=== PATIENT | female | born 1970 | race Caucasian/White ===

== ENCOUNTER 2016-12-17 06:52 | Inpatient (IN) | payer MEDICARE ==
[~2016-12-17] VITALS: Ht 153.7 cm; Wt 60.9 kg
[~2016-12-17 06:52] MED LIST: AMITIZA8 MCG OR; ASPIRIN325 MG PO; BACTRIM 400-801 TAB PO; BACTROBAN NASAL1 GM NASAL; BENADRYL25 MG PO; CATAPRES0.1 MG PO; COLACE100 MG OR; COZAAR100 MG OR; DILAUDID2 MG PO; DUONEB 2.5-0.5 M3 ML NEB; FLUTICASONE PRO16 GM NS; HYDROCODONE-APA1 TAB PO; KAYEXALATE15 G/60 ML PO; LEXAPRO20 MG PO; LINZESS145 MCG PO; NEXIUM20 MG PO; NITROQUICK0.4 MG SL; NITROSTAT0.4 MG SL; NORVASC5 MG OR; PHOSLO667 MG PO; REGLAN5 MG OR; REGLAN5 MG PO; STERAPRED 5MG 65 M1 PO; SYNTHROID125 MCG PO; TOPAMAX25 MG PO; VENTOLIN HFA18 GM INH; XALATAN 0.0052.5 ML EACH EYE; XANAX1 MG PO; ZOFRAN4 MG PO
[2016-12-17] MEDS ORDERED: LINZESS290 MCG PO (09:41)
[2016-12-17] MEDS ORDERED: RESTASIS EYE DR30 EA EACH EYE (09:49)
[2016-12-17] MEDS ORDERED: ZOFRAN ODT4 MG/UDTAB PO (09:54)
[2016-12-17] MEDS ORDERED: TUMS500 MG PO (09:55)
[2016-12-17] MEDS ORDERED: MIDODRINE HCL10 MG PO (09:56)
[2016-12-17] MEDS ORDERED: TOPROL XL25 MG PO (10:00)
--- NOTE | 2016-12-17 10:00 | NUR ---
ALERT AND ORIENTED X4. ARRIVE TO ROOM VIA STRETCHER FROM [facility]. REPORT FROM ANNA MARIE. COMPLAINS OF NAUSEA AND VOMITING. ZOFRAN GIVEN INROUTE. DENIES SOB. RESERVE RT ARM. RT ARM FISTULA. DIALYSIS . REFUSE NG TUBE. REFUSE IV PLACEMENT. INFORM AND TUNDE MORRIS. CONTINUE ADMISSION PROCESS. BED LOCKED AND LOW. CALL LIGHT IN REACH. TWO SIDERAILS UP. REFUSE SCDs.
[2016-12-17 13:18] VITALS: BP 137/80; Ht 153.7 cm; Wt 60.9 kg
[2016-12-17 13:34] VITALS: BP 137/80
[2016-12-17 13:42] LABS: BASOPHILS 0.2 % (0.0-2.0); EOSINOPHILS 1.7 % (0-7); HEMATOCRIT 34.8 % (36.0-48.0); HEMOGLOBIN 11.2 g/dL (12-16); LYMPHOCYTES 25.7 % (15-50); MCH 32.7 pg (26.0-34.0); MCHC 32.2 g/dL (31.0-37.0); MCV 101.8 fL (80.0-100.0); MEAN PLATELET VOLUME 11.6 fL (7.4-10.4); MONOCYTES 5.2 % (2-11); NEUTROPHILS 67.2 % (40-80); PLATELET COUNT 103 10x3/uL (130-400); RBC 3.42 10x6/uL (4.00-5.40); RDW 14.3 % (11.5-14.5); WBC 4.6 10x3/uL (4.8-10.8)
[2016-12-17 13:50] LABS: CALCIUM 9.7 mg/dL (8.5-10.1); CARBON DIOXIDE 27.9 mmol/L (21.0-32.0); CREATININE - SERUM 8.6 mg/dL (0.6-1.3)
[2016-12-17 13:56] LABS: POTASSIUM - SERUM 5.9 mmol/L (3.5-5.1)
[2016-12-17 15:08] LABS: T4 THYROXINE 9.9 ug/dL (4.7-13.3); THYROID STIMULATING HORMONE 0.18 uIU/mL (0.36-3.74)
[2016-12-17 18:15] VITALS: BP 147/81
[2016-12-17 22:19] VITALS: BP 138/74
[2016-12-18 01:26] VITALS: BP 134/73
--- NOTE | 2016-12-18 03:01 | NUR ---
PT RESTING IN BED WITH EYES CLOSED. NO IV, NO NGT, BOTH WERE REFUSED BY PATIENT. CPOC.
[2016-12-18 04:29] VITALS: BP 144/77
--- NOTE | 2016-12-18 05:54 | NUR ---
PROVIDED AM MEDS. PT STATES SHE CANNOT TAKE THE LINZESS IN THE AM, THAT SHE WILL TAKE THEM IN THE AFTERNOON OR SHE WILL BE GOING TO THE BATHROOM ALL DAY.
[2016-12-18 09:04] VITALS: BP 146/89
[2016-12-18 10:02] LABS: BASOPHILS 0.3 % (0.0-2.0); EOSINOPHILS 2.4 % (0-7); HEMATOCRIT 32.8 % (36.0-48.0); HEMOGLOBIN 10.6 g/dL (12-16); LYMPHOCYTES 35.2 % (15-50); MCH 33.1 pg (26.0-34.0); MCHC 32.3 g/dL (31.0-37.0); MCV 102.5 fL (80.0-100.0); MEAN PLATELET VOLUME 11.8 fL (7.4-10.4); MONOCYTES 3.9 % (2-11); NEUTROPHILS 58.2 % (40-80); PLATELET COUNT 91 10x3/uL (130-400); RDW 14.4 % (11.5-14.5); WBC 3.4 10x3/uL (4.8-10.8)
[2016-12-18 10:06] LABS: ANION GAP 18.2 mmol/L (8-16); CALCIUM 9.2 mg/dL (8.5-10.1); CARBON DIOXIDE 27.4 mmol/L (21.0-32.0); CREATININE - SERUM 9.8 mg/dL (0.6-1.3); POTASSIUM - SERUM 5.6 mmol/L (3.5-5.1)
--- NOTE | 2016-12-18 10:33 | NUR ---
1015- IN PTS ROOM GIVING PT MEDICATION FOR NAUSEA AND PAIN. PT STATES " I AM NOT GOING TO DIALYSIS UNLESS I HAVE MY CREAM TO PUT OVER MY FISTULA". I STATED TO PT THAT I WOULD CALL ALEXANDRA RICO NP AND INFORM HER OF THIS. PT ALSO STATES " I WANT TO SEE A DOCTOR [facility] OR GO HOME IT IS TOO HOT IN THIS HOSPITAL". WILL CONTINUE TO MONITOR. 1035- ALEXANDRA RICO NP ON UNIT. INFORMED HER OF PT WANTING CREAM FOR AVF SITE BEFORE DIALYSIS. WILL AWAIT NEW ORDERS AND CONTINUE TO MONITOR.
[2016-12-18 10:37] LABS: PLATELET ESTIMATE DECREASED
--- NOTE | 2016-12-18 12:02 | NUR ---
ALEXANDRA RICO NP GAVE VERBAL ORDERS FOR PTS EMLA CREAM FOR BEFORE DIALYSIS. PUT ORDER IN COMPUTER ORDER GIVEN. WILL CALL PHARMACY AND GIVE TO PT PRIOR TO DILAYSIS.
[2016-12-18 12:23] VITALS: BP 142/88
--- NOTE | 2016-12-18 14:34 | NUR ---
1400-PT TO DIALYSIS VIA WHEELCHAIR.
--- NOTE | 2016-12-18 15:37 | NUR ---
0715- AM ROUNDING- PT LAYING IN BED ON RIGHT SIDE WITH EYES CLOSED RESTING. NO MONITOR. ON ROOM AIR. NO IV ACCESS, PER REPORT PT REFUSED IV CATHETER ON SUPERVISOR PIG MACHINE (DOCTOR IS AWARE PER SUPERVISOR PIG MACHINE NURSE YARITZA NIX). RESERVE RIGHT ARM FOR AVF, PT IS SUPPOSE TO DIALYZE TODAY. OLD AVF SITE TO LEFT UPPER ARM THAT PER REPORT, DOES NOT WORK ANYMORE. NO NEED AT CURRENT TIME. WILL CONTINUE TO MONITOR AND CONTINUE WITH PLAN OF CARE.
--- NOTE | 2016-12-18 18:06 | NUR ---
PT BACK FROM DIALYSIS VIA WHEELCHAIR. WILL CONTINUE TO MONITOR.
--- NOTE | 2016-12-18 18:45 | NUR ---
PT SITTING UP IN BED WITH EYES OPEN RESTING. NO NEED AT CURRENT TIME. WILL CONTINUE TO MONITOR.
[2016-12-18 20:59] VITALS: BP 134/71
[2016-12-19 00:12] VITALS: BP 135/72
--- NOTE | 2016-12-19 01:52 | NUR ---
RESTING IN BED WITH NO DISTRESS. RESPS EVEN/NONLABORED. NO IV ACCESS/REFUSES. CPOC. CALL LIGHT IN REACH.
[2016-12-19 04:00] VITALS: BP 130/70
[2016-12-19 06:52] LABS: ANION GAP 17.4 mmol/L (8-16); CALCIUM 8.6 mg/dL (8.5-10.1); CARBON DIOXIDE 31.4 mmol/L (21.0-32.0); CREATININE - SERUM 6.5 mg/dL (0.6-1.3); POTASSIUM - SERUM 4.8 mmol/L (3.5-5.1)
[2016-12-19 07:17] LABS: HEMATOCRIT 33.5 % (36.0-48.0); HEMOGLOBIN 10.7 g/dL (12-16); MCH 32.8 pg (26.0-34.0); MCHC 31.9 g/dL (31.0-37.0); MCV 102.8 fL (80.0-100.0); MEAN PLATELET VOLUME 11.4 fL (7.4-10.4); PLATELET COUNT 106 10x3/uL (130-400); RBC 3.26 10x6/uL (4.00-5.40); RDW 14.2 % (11.5-14.5); WBC 2.8 10x3/uL (4.8-10.8)
[2016-12-19 07:49] LABS: LYMPHOCYTES 38 % (15-50); MONOCYTES 8 % (2-11); NEUTROPHILS 54 % (40-80); PLATELET ESTIMATE DECREASED
--- NOTE | 2016-12-19 07:50 | NUR ---
PT AOX4 RESP EVEN AND NONLABORED PT DENIES NEEDS AT THIS TIME BED AT LOWEST SETTING CALL LIGHT WITHIN REACH WILL CONTINUE TO MONITOR
[2016-12-19 08:40] VITALS: BP 146/74
[2016-12-19] MEDS ORDERED: SYNTHROID112 MCG PO (12:50)
[2016-12-19 13:55] VITALS: BP 149/63
--- NOTE | 2016-12-19 14:07 | NUR ---
CM SPOKE WITH PATIENT REGARDING D/C NEEDS. PATIENT STATED SHE IS A DIALYSIS PATIENT AT [employer] AND ALREADY KNOWS HER SCEDULE. PATIENT STATED SHE IS CURRENT WITH [facility] AND HAD NO OTHER NEEDS AT THIS TIME. PATIENT HAS A RIDE HOME TO [place] BY HER FRIEND BENJI. D/C IMM SERVED AND SIGNED.
--- NOTE | 2016-12-19 14:40 | NUR ---
PATIENT PACING IN [place] AND ASKING TO SIGN PAPERS TO GO. INFORMEED THAT PAPERWORK WAS NEARLY COMPLETE AND THAT NURSE WOULD BRING IT TO THE ROOM. TEN MINUTES LATER PATIENT IS AT THE DESK FOR PAPERWORK. INFORMED THAT D/C PAPERWORK NEEDS TO BE PRINTED. ASKED PATIENT [facility] TO CALL LEVOTHYROXINE TO AND SHE STATED THAT SHE HAD SOME AT HOME. INFORMED PATIENT THAT THE DOSAGE HAD BEEN CHANGED. PATIENT C/O "MEDS NOT BEING GIVEN RIGHT" WHILE IN THE HOSPITAL, SO "NONE OF THIS IS RIGHT" (REFERRING TO THE D/C PAPERWORK). DISCHARGE INSTRUCTIONS REVIEWED BY NURSE AND SIGNED BUY PATIENT.
--- NOTE | 2016-12-19 14:43 | NUR ---
PT LEFT VIA WHEELCHAIR AT THIS TIME TO PRIVATE VEHICLE TO HOME
--- NOTE | 2016-12-20 10:43 | NUR ---
Patient Name: ASHELY DILLARD Encounter No: [id number] : 1970 Primary Insurance: MEDICARE A & B Anticipated DC Date: Planned Disposition: HOME HEALTH External Planned Provider: [facility] DCP follow-up note: CM REVIEWED CHART, PT WENT HOME OVER THE WEEKEND WITH CHART NOTES INDICATING PT IS ACTIVE WITH [facility] AND PT DENIED DISCHARGE NEEDS. CM CALLED [facility] IN [place], PT IS NOT ON SERVICE WITH THEM. CM CALLED [facility] AND WAS ADVISED THAT PT IS NOT ON SERVICE WITH THEM. DESTINY CALLED PT'S HOME NUMBER, , THERE WAS NO ANSWER. CM UNABLE TO VERIFY PT'S HOME HEALTH SERVICE AND UNABLE TO REACH PT. Luis Garcia, CASE MANAGEMENT
== END 2016-12-19 14:44 | disposition home or self-care (01) | DRG 391 ==
LOC: D.M2 06:52
PROVIDERS: Internal Medicine Gastroenterology; Internal Medicine Nephrology; ADMIT Internal Medicine Nephrology
PROC: 5A1D60Z (ICD-10-PCS; principal; 2016-12-17)
DX: K59.09 Other constipation (principal); N18.6 End stage renal disease; I13.2 Hypertensive heart and chronic kidney disease with heart failure and with stage 5 chronic kidney disease, or end stage renal disease; N25.81 Secondary hyperparathyroidism of renal origin; I50.9 Heart failure, unspecified; Z99.2 Dependence on renal dialysis; I95.9 Hypotension, unspecified; E03.9 Hypothyroidism, unspecified; F41.9 Anxiety disorder, unspecified; F32.9 Major depressive disorder, single episode, unspecified; D69.6 Thrombocytopenia, unspecified; Z72.0 Tobacco use; D63.1 Anemia in chronic kidney disease

== ENCOUNTER 2017-01-05 23:39 | Inpatient (IN) | payer MEDICARE ==
[~2017-01-05] VITALS: Ht 153.7 cm; Wt 69.6 kg
--- NOTE | ~2017-01-05 | DS ---
PATIENT:ASHELY DILLARD :[birth year] MEDICAL RECORD: [id number] DISCHARGE SUMMARY ADMISSION DATE: 01/05/17 DISCHARGE DATE: 01/14/17 Summary HISTORY OF PRESENT ILLNESS: Ms. Dillard is a 46-year-old white female with end-stage renal disease on chronic dialysis. I saw her on rounds and she was stable and left the dialysis unit ambulatory. That evening prior to admission, she developed abdominal pain and went to the [place] [facility] where she on CT, was found to have a small-bowel obstruction and was transferred to [place] and admitted for the above. HOSPITAL COURSE: The patient's repeat CT here confirmed a small-bowel obstruction. She was seen by Dr. Tripathi, who agreed that she would need surgical therapy. She was taken to surgery where she had evidence of severe pus inflammation due to her history of peritonitis on peritoneal dialysis and required an extensive adhesiolysis and dissection of the area. She postoperatively was taken to the ICU. She remained on vasopressor s her entire hospitalization in the intensive care unit as well as NG suction. She was begun on TPN. Blood cultures growing E. coli, seen by Dr. Shine. She received 8 days of Zosyn and vancomycin. The E. coli was sensitive to the Zosyn. She had a cardiac arrest during the organisation and methods analyst and of her seventh hospitalization day, had an unsuccessful resuscitation. CAUSE OF : 1. Cardiac arrest. 2. Sepsis. 3. Small-bowel obstruction, requiring exploratory laparotomy. 4. End-stage renal disease. 5. Hypotension requiring vasopressors. 6. Chronic obstructive pulmonary disease, history of smoking. 7. Chronic anemia. PLAN: The body was removed to the morgue. There was no family present. TRANSINT:[id number] Voice Confirmation ID: [id number] DOCUMENT ID: [id number] JOSE RIVAS MD CC: [id number] DICTATION DATE: 01/14/17628 MEDIA PRODUCTION MANAGER: 01/14/17 2343 DIS IN 01/14/17 [facility] [address] [place] [address]
--- NOTE | ~2017-01-05 | EC ---
PATIENT:ASHELY DILLARD DATE OF SERVICE: 01/05/17 SEX: F MEDICAL RECORD: [id number] DATE OF : [birth year] LOCATION:[facility] D230 AGE OF PATIENT: 46 ADMISSION DATE: 01/05/17 REFERRING PHYSICIAN: INTERPRETING PHYSICIAN: RUPAL WINTERS M.D. ECHOCARDIOGRAM REPORT ECHO CHARGES 4 ECHO COMPLETE CLINICAL DIAGNOSIS: HYPOTENSION ECHOCARDIOGRAPHIC MEASUREMENTS (adult normal given) AC root (d.<3.7cm) 3.0 LV Septum d (<1.2 cm> 1.1 Valve Excursion 1.8 LV Septum (systole) 1.5 Left Atria (s.<4.0cm> 4.3 LVPW d(<1.2cm) 1.3 RV (d.<2.3cm) 3.6 LVPW (sytole) 1.8 LV diastole(<5.6CM) 5.1 MV E-F(>70mm/sec) LV systole 2.9 LVOT Diameter 1.7 MV exc.(>10mm) 1.1 Est.ejection fraction (50-75%) Pericardial Effusion N DOPPLER: LVIT A 122 E 138 LA RVSP 49 LVOT 103 AOP1/2T Asc. Ao 182 RVOT 129 RA PA 203 AV Gradient Peak 13.23 AV Mean 8.27 AV Area 1.6 MV Gradient Peak 13.03 MV Mean 5.80 MV Area COMMENTS: Machine Cementer And Folder: Zina BECKWITH Chainstitch Sewing Machine Operator:Zina Winters TAPE# PACS DATE OF SERVICE: 01/13/2017 REFERRING PHYSICIAN: Jayant Rowan MD INDICATION: Hypotension. DESCRIPTION: Left ventricle is normal in size. There is moderate LV dysfunction noted. Estimated ejection fraction is in the order of 35% to 40%. Mitral valve is structurally normal. There is mild regurgitation seen. Left atrium is moderately dilated. The aortic valve is trileaflet. There is no ECHOCARDIOGRAM REPORT [id number] ASHELY DILLARD stenosis or regurgitation seen. Right ventricle is mildly dilated. Tricuspid valve is structurally normal. There is mild regurgitation seen. Right ventricular systolic pressure is elevated at 49 mmHg. There is no pericardial effusion seen. IMPRESSION: 1. Moderate left ventricular dysfunction with ejection fraction of 35%. 2. Moderate mitral regurgitation. 3. Mild tricuspid regurgitation with elevated pulmonary pressures. TRANSINT:[id number] Voice Confirmation ID: [id number] DOCUMENT ID: [id number] RUPAL WINTERS M.D. CC: [id number] DICTATION DATE: 01/14/17609 AUXILIARY POWERPLANT OPERATOR: 01/14/17623 DIS IN 01/14/17 [place] [id number] [place] [id number]
--- NOTE | 2017-01-05 23:30 | NUR ---
RECEIVED TO ROOM 2127 ALERT AND ORIENTED 46 Y/O FEMALE PT SEEN BY DR MYERS FOR SMALL BOWEL OBSTRUCTURE. AWAITING TO HEAR FROM MD FOR FURTHER ORDERS. PULLED NG TUBE OUT OF NOSE, STATING "I DONT WANT THIS THING ". ONTO FLOOR. ASSIST TO LYING DOWN ON BED, WITH SR UP X2. C/L IN REACH. CONTINUE TO MONIKTOR.
[~2017-01-05 23:39] MED LIST changes: +LINZESS290 MCG PO; +MIDODRINE HCL10 MG PO; +RESTASIS EYE DR30 EA EACH EYE; +SYNTHROID112 MCG PO; +TOPROL XL25 MG PO; +TUMS500 MG PO; +ZOFRAN ODT4 MG/UDTAB PO
--- NOTE | 2017-01-06 03:18 | NUR ---
QUIET IN BED AT THIS TIME. JUANITA PHENERGAN IM INJECTION WELL. NO FURTHER C/O N/V VOICED. C/L IN REACH.
[2017-01-06 05:06] VITALS: BP 139/87; BMI 22.8
[2017-01-06 05:47] VITALS: BP 121/79
[2017-01-06 05:47] LABS: BASOPHILS 0 % (0.0-2.0); EOSINOPHILS 0.2 % (0-7); HEMATOCRIT 42.7 % (36.0-48.0); HEMOGLOBIN 14.2 g/dL (12-16); IMMATURE GRANULOCYTES 0.2 % (0-5); LYMPHOCYTES 15.4 % (15-50); MCH 33.6 pg (26.0-34.0); MCHC 33.3 g/dL (31.0-37.0); MCV 100.9 fL (80.0-100.0); MEAN PLATELET VOLUME 11.7 fL (7.4-10.4); NEUTROPHILS 78.2 % (40-80); RBC 4.23 10x6/uL (4.00-5.40); RDW 14.3 % (11.5-14.5); WBC 6.6 10x3/uL (4.8-10.8)
[2017-01-06 06:01] LABS: PLATELET COUNT 171 10x3/uL (130-400)
[2017-01-06 06:32] LABS: ALBUMIN 4.1 g/dL (3.4-5.0); BILIRUBIN - TOTAL 0.62 mg/dL (0.2-1.3); CALCIUM 9.6 mg/dL (8.5-10.1); CARBON DIOXIDE 23.5 mmol/L (21.0-32.0); CREATININE - SERUM 5.5 mg/dL (0.6-1.3); POTASSIUM - SERUM 3.5 mmol/L (3.5-5.1); PROTEIN - SERUM 8.3 g/dL (6.4-8.2)
--- NOTE | 2017-01-06 07:24 | NUR ---
PT LAYING TO LEFT SIDE. O2 SAT 87% ON RA. PT SAYS SHE IS ON HOME O2 AT HOME PRN. STARTED O2 AT 2L PT SATS UP TO 98%. REQUESTING PHEN. FOR N/V. NOT TIME YET. DOES NOT WANT ZOFRAN WILL CONT TO MONITOR
[2017-01-06 08:06] VITALS: BP 111/70
--- NOTE | 2017-01-06 08:06 | NUR ---
SPOKE WITH HIPOLITO IN PHARM AND ASKED HIM TO BRING UP MEDS TO INSERT NG TUBE
--- NOTE | 2017-01-06 09:06 | NUR ---
STUDENT NURSE INSERTED NG TUBE TO R NARE 16F. ORDERED STAT KUB
--- NOTE | 2017-01-06 09:11 | NUR ---
16FR NGT DROPPED TO R NARE. MEASURED FROM TIP OF NOSE TO EAR LOBE AND FROM EAR LOBE TO XYPHOID PROCESS. LIDOCAINE LUBRICANT USED. IMMEDIATE RETURN OF CLEAR GREEN FLUID WITH FOOD PARTICALS TO TUBING. HOOKED TO SUCTION TUBING, BUT SUCTION NOT TURNED ON. STAT KUB ORDERED BY TIFFANY SADNERS. BED LOW, CALL LIGHT IN REACH, WET WASH CLOTHES PROVIDED FOR PT, DENIES NEEDS. CPOC. PRCEPTED BY Margaret BLISS RN.
[2017-01-06 09:52] LABS: ALBUMIN 4.1 g/dL (3.4-5.0); ANION GAP 23.1 mmol/L (8-16); BILIRUBIN - TOTAL 0.7 mg/dL (0.2-1.3); CALCIUM 9.7 mg/dL (8.5-10.1); CARBON DIOXIDE 23.4 mmol/L (21.0-32.0); CREATININE - SERUM 5.6 mg/dL (0.6-1.3); POTASSIUM - SERUM 3.5 mmol/L (3.5-5.1); PROTEIN - SERUM 8.3 g/dL (6.4-8.2); T4 THYROXINE 15.4 ug/dL (4.7-13.3); THYROID STIMULATING HORMONE 0.74 uIU/mL (0.36-3.74)
--- NOTE | 2017-01-06 10:03 | NUR ---
CHANGE ORDER TO UPRIGHT KUB AND CHEST [address] CLARK
[2017-01-06 10:06] VITALS: Ht 153.7 cm; Wt 69.6 kg
--- NOTE | 2017-01-06 10:31 | NUR ---
PT CO PAIN 10/10 IN ABDOMEN. PT IS ALLERGIC TO MOST PAIN MEDICATIONS. I TALKED WITH DR MYERS AND DR CLARK ABOUT THIS BOTH SAID PT IS UNABLE TO HAVE ANYTHING IV DUE TO ALLERGIES. ONLY PRESCRIBED PO NORCO AND PT CAN NOT KEEP DOWN AT THIS TIME. PT TO GO TO SURGERY SOON. CONSENTS SIGNED AND ON THE CHART.
--- NOTE | 2017-01-06 12:47 | NUR ---
DIALYSIS COORDINATOR: PATHWAYS: [facility]. Medical records forwarded to unit for their records. ADRIEN MATHEWS.
--- NOTE | 2017-01-06 13:16 | NUR ---
ORDER WAS PLACED TO CHECK PATIENT FOR IMPACTION. PT HAS NO S/S OF IMPACTION PER RECTUM PT CLAIMS TO HAVE HAD A BM YESTERDAY.
--- NOTE | 2017-01-06 18:01 | NUR ---
PT SITTING UP IN BED SLEEPING NO S/S DISTRESS NOTED WILL CONT TO MONITOR
[2017-01-06 19:52] LABS: BASOPHILS 0.2 % (0.0-2.0); EOSINOPHILS 0.3 % (0-7); HEMATOCRIT 40.1 % (36.0-48.0); HEMOGLOBIN 13.2 g/dL (12-16); IMMATURE GRANULOCYTES 0.1 % (0-5); LYMPHOCYTES 19.5 % (15-50); MCH 33.8 pg (26.0-34.0); MCHC 32.9 g/dL (31.0-37.0); MCV 102.8 fL (80.0-100.0); MEAN PLATELET VOLUME 11.7 fL (7.4-10.4); MONOCYTES 8.4 % (2-11); NEUTROPHILS 71.5 % (40-80); PLATELET COUNT 150 10x3/uL (130-400); RDW 14.7 % (11.5-14.5)
[2017-01-06 19:54] LABS: WBC 8.7 10x3/uL (4.8-10.8)
[2017-01-06 20:00] VITALS: BP 85/47
[2017-01-06 20:02] LABS: APTT 27.3 SECONDS (22.8-39.4); INR 1.09 (0.85-1.17)
[2017-01-06 20:19] LABS: CALCIUM 9.8 mg/dL (8.5-10.1); CARBON DIOXIDE 28.1 mmol/L (21.0-32.0)
[2017-01-06 20:30] LABS: CREATININE - SERUM 7.5 mg/dL (0.6-1.3); POTASSIUM - SERUM 4.1 mmol/L (3.5-5.1)
[2017-01-07] VITALS (22 sets, daily range): BP systolic 78–160; BP diastolic 51–104
--- NOTE | 2017-01-07 00:55 | NUR ---
RESTING WITH EYES CLOSED, RESPERATIONS EVEN, NO S/S DISTRESS NOTED.
--- NOTE | 2017-01-07 04:17 | NUR ---
IT INTERN AT BEDSIDE TO OBTAIN VITALS, CALL LIGHT IN REACH. WILL CONTINUE WITH PLAN OF CARE.
--- NOTE | 2017-01-07 04:33 | NUR ---
PT C/O PAIN TO THROAT AND ACHY BODY. CALL PLACED TO ALEXANDRA RICO APN SALT LIFTER FOR DR MYERS. EXPLAINED THAT PT IS NPO AND COMPLAINING OF AND ONLY HAS NORCO ORDERED. ONE TIME ORDER GIVEN TO ADMINISTER DILAUDID 0.5 MG IV.
[2017-01-07 04:44] LABS: BASOPHILS 0.3 % (0.0-2.0); EOSINOPHILS 0.8 % (0-7); HEMATOCRIT 41.3 % (36.0-48.0); HEMOGLOBIN 13.3 g/dL (12-16); IMMATURE GRANULOCYTES 0.1 % (0-5); LYMPHOCYTES 26.2 % (15-50); MCH 33.2 pg (26.0-34.0); MCHC 32.2 g/dL (31.0-37.0); MEAN PLATELET VOLUME 11.9 fL (7.4-10.4); MONOCYTES 7.4 % (2-11); NEUTROPHILS 65.2 % (40-80); PLATELET COUNT 153 10x3/uL (130-400); RBC 4.01 10x6/uL (4.00-5.40); RDW 14.8 % (11.5-14.5); WBC 7.2 10x3/uL (4.8-10.8)
[2017-01-07 05:09] LABS: ANION GAP 16.8 mmol/L (8-16); CALCIUM 10.5 mg/dL (8.5-10.1); CARBON DIOXIDE 29.8 mmol/L (21.0-32.0); CREATININE - SERUM 8.6 mg/dL (0.6-1.3); PHOSPHOROUS 6.1 mg/dL (2.5-4.9); POTASSIUM - SERUM 4.6 mmol/L (3.5-5.1)
--- NOTE | 2017-01-07 07:50 | NUR ---
DISCUSSED THE PLAN OF CARE FOR THE DAY ACCORDING TO ORDERS FROM DR. CLARK AND DR. RIVAS. SHE VOICES UNDERSTANDING AND SIGNED HER CONSENTS. HER NGT IS PATENT VIA THE RIGHT NARE WITH LIS. SHE IS WITHOUT C/O PAIN AND DENIES NEEDS. 3 ICE CUBES GIVEN.
--- NOTE | 2017-01-07 08:16 | NUR ---
PATIENT IS AWAKE AND ALERT, SITTING UP IN THE BED TALKING WITH DR. CLARK.
--- NOTE | 2017-01-07 10:26 | NUR ---
Ms. Parker requested to decline dialysis today due to surgery. She did request dialysis for sat January 08.
--- NOTE | 2017-01-07 17:35 | NUR ---
REC'D VIA [facility], WITH HOSPITAL PERSONNEL X3 AT BEDSIDE, ETT IN PLACE AND SECURED, CONNECTED TO VENT WITH SETTINGS PER FLOWSHEET, LEFT NARE NGT IN PLACE CLAMPED PLACE IN LIWS, SEDATED AND DOES NOT FOLLOW COMMANDS, EPIDURAL IN PLACE WITH FENTANYL/BUPIVACAINE IN USE, RIGHT UPPER ARM FISTULA WITH BRUIE AND THRILL, MIDLINE ABDOMINAL DRESSING CDI, LEFT GROIN TL SL, SCD'S PLACED, ASSESSMENT COMPLETE PER FLOWSHEET, DR DIAZ AT BEDSIDE, POST SURGERY ORDERS PLACED, PAGE TO CHU ANDERSON, B/L WRIST RESTRAINTS AND SCD'S INITIATED
--- NOTE | 2017-01-07 18:40 | NUR ---
250CC NS BOLUS INTIATED PER ORDER AND PROPOFAL 20 MCG
[2017-01-07 18:43] LABS: BASOPHILS 0.2 % (0.0-2.0); EOSINOPHILS 0.2 % (0-7); HEMATOCRIT 37.2 % (36.0-48.0); IMMATURE GRANULOCYTES 0.2 % (0-5); LYMPHOCYTES 13.4 % (15-50); MCH 33.2 pg (26.0-34.0); MCHC 32.3 g/dL (31.0-37.0); MEAN PLATELET VOLUME 11.3 fL (7.4-10.4); MONOCYTES 6.6 % (2-11); NEUTROPHILS 79.4 % (40-80); PLATELET COUNT 164 10x3/uL (130-400); RBC 3.61 10x6/uL (4.00-5.40); RDW 14.6 % (11.5-14.5); WBC 8.6 10x3/uL (4.8-10.8)
[2017-01-07 18:49] LABS: ANION GAP 21.6 mmol/L (8-16); CALCIUM 8.8 mg/dL (8.5-10.1); CREATININE - SERUM 9.2 mg/dL (0.6-1.3); POTASSIUM - SERUM 4.6 mmol/L (3.5-5.1)
--- NOTE | 2017-01-07 19:00 | NUR ---
REPORT RECIEVED, INITIAL ASSESSMENT COMPLETE, PLEASE SEE FLOW SHEETS FOR DETAILS. PT AWAKE AND ALERT, COMPLAINING OF PAIN, BP NOT UNDER CONTROL ATT, WILL START LEVOPHED AND GIVE PT MORE SEDATION NEED TO MAKE HER COMFORTABLE. CHECKED EPIDURAL SITE AND WNL. BED LOW AND LOCKED, CALL LIGHT IN REACH, RESTRAINTS ON AND CHECKED AND RETIED WITH QUICK RELEASE KNOTS.
--- NOTE | 2017-01-07 21:00 | NUR ---
BP STABLE, WORKING ON TITRATIONS OF LEVOPHED AND PROPOFOL TO KEEP PT COMFORTABLE, SHE SEEMS TO STILL BE IN PAIN. WILL MONITOR BP FURTHER AND ONCE STABLE WILL CALL ANESTHESIA ABOUT GIVING MORE PAIN MEDS. WILL CONTINUE POC.
--- NOTE | 2017-01-07 22:55 | NUR ---
PT IS THRASHING ABOUT, HIGH LIKELYHOOD OF SELF EXTUBATION, PAGED DR SAGE AND HE GAVE NEW ORDERS.
--- NOTE | 2017-01-07 23:00 | NUR ---
REASSESSMENT COMPLETE, PLEASE SEE FLOW SHEETS FOR DETAILS. BED LOW AND LOCKED, CALL LIGHT IN REACH. VSS, PT STILL AGGITATEDE ATT, WILL GIVE ATIVAN ORDERED. WILL CONTINUE POC.
[2017-01-08] VITALS (92 sets, daily range): BP systolic 80–137; BP diastolic 47–100
--- NOTE | 2017-01-08 01:00 | NUR ---
PT RESTING QUIETLY, NO S&S OF ACUTE DISTRESS NOTED. BED LOW AND LOCKED, CALL LIGHT IN REACH. RESTRAINTS CHECKED AND SECURED WITH QUICK RELEASE KNOTS. VSS, WILL CONTINUE POC.
--- NOTE | 2017-01-08 03:00 | NUR ---
REASSESSMENT COMPELTE, PLEASE SEE FLOW SHEETS FOR DETAILS. BED LOW AND LOCKED, CALL LIGHT IN REACH. VSS, WILL CONTINUE POC.
--- NOTE | 2017-01-08 05:00 | NUR ---
VSS, BED LOW AND LOCKED, CALL LIGHT IN REACH, WILL CONTINUE POC.
[2017-01-08 05:27] LABS: BASOPHILS 0.1 % (0.0-2.0); EOSINOPHILS 0.1 % (0-7); HEMATOCRIT 35.1 % (36.0-48.0); HEMOGLOBIN 11.6 g/dL (12-16); IMMATURE GRANULOCYTES 0.4 % (0-5); LYMPHOCYTES 5.7 % (15-50); MCH 33.3 pg (26.0-34.0); MEAN PLATELET VOLUME 11.1 fL (7.4-10.4); MONOCYTES 5.6 % (2-11); NEUTROPHILS 88.1 % (40-80); PLATELET COUNT 158 10x3/uL (130-400); RBC 3.48 10x6/uL (4.00-5.40); RDW 14.8 % (11.5-14.5)
[2017-01-08 05:28] LABS: MCV 100.9 fL (80.0-100.0); WBC 14.2 10x3/uL (4.8-10.8)
[2017-01-08 06:00] LABS: ANION GAP 23.6 mmol/L (8-16); BILIRUBIN - TOTAL 0.68 mg/dL (0.2-1.3); CALCIUM 8.8 mg/dL (8.5-10.1); CARBON DIOXIDE 18.1 mmol/L (21.0-32.0); CREATININE - SERUM 9.8 mg/dL (0.6-1.3); MAGNESIUM - SERUM 1.8 mg/dL (1.8-2.4); PHOSPHOROUS 5.5 mg/dL (2.5-4.9); POTASSIUM - SERUM 4.7 mmol/L (3.5-5.1); PROTEIN - SERUM 6.4 g/dL (6.4-8.2)
[2017-01-08 06:04] LABS: TROPONIN-I 0.158 ng/mL (0.000-0.060)
--- NOTE | 2017-01-08 07:15 | OP ---
PATIENT NAME: ASHELY DILLARD MEDICAL RECORD: [id number] :70 LOCATION:[facility] D.2304 ADMISSION DATE:01/05/17 SURGEON: SERGE GAYTAN MD DATE OF OPERATION: 01/07/2017 INDICATION FOR PROCEDURE: This is a 46-year-old female who was taken to the operating room by Dr. Tripathi. The patient had recurrent small bowel obstruction on preoperative imaging. The patient has high-grade small bowel obstruction with a matted mass in the left lower quadrant. She also has a history of end-stage renal disease on dialysis as well as cirrhosis. Please see Dr. Tripathi's operative note. PROCEDURE IN DETAIL: At the time of my arrival, Dr. Tripathi had already performed the exploratory laparotomy and was in the midst of an extensive and incredibly difficult lysis of adhesions. The patient had undiscernible abdominal planes within the abdomen. I assisted Dr. Tripathi in performing an extensive lysis of adhesions that took greater than 50% of the operation well over the lysis adhesions performed taking greater than 2 hours. Once extensive lysis of adhesions was performed, it was identified that there was a massive bowel in the region of the terminal ileum. Once the terminal ileum was freed, lysis of adhesions continued until the small bowel was free from the terminal ileal mass of the small bowel to the ligament of Treitz. The right colon was mobilized up the pelvic sidewall. The hepatic flexure was mobilized as well as the transverse colon. At this time, I decided to perform an extended ileocecectomy. The distal 20-30 cm of terminal ileum was transected. A mesenteric window was created. The small bowel was taken with a 75-mm linear [place] stapler. In the mid transverse colon, a mesenteric window was again created. The transverse colon was transected using the 75-mm linear cutting stapler. The mesentery was taken with a combination of electrocautery. Mesentery was tied off using 2-0 Vicryl suture. The specimen was sent for permanent pathology. At this time, a functional [id number] ileocolonic anastomosis was created using 2 firings of 75-mm [place] linear cutting stapler. All serosal defects were repaired. The abdominal cavity was copiously irrigated and suctioned. At this time, Dr. Tripathi finished the remaining portion of the operation. Please see his operative note for all remaining details of the operation. TRANSINT:[id number] Voice Confirmation ID: [id number] DOCUMENT ID: [id number] SERGE GAYTAN MD at 0715 CC: [id number] DICTATION DATE: 01/07/171716 GALLEY BOY: 01/08/17 0026 ADM IN [facility] [address] [place] [address]
--- NOTE | 2017-01-08 12:14 | NUR ---
TPN STARTED TO CVL.
--- NOTE | 2017-01-08 12:57 | NUR ---
Patient on 30 of Levophed and continued to have low blood pressures throughout dialysis treatment. No fluid was pulled due to low blood pressures. Processed 47.8L of blood. Treatment was completed, blood returned, needles removed, and bleeding ceased. Area secured with 2X2's and paper tape.
--- NOTE | 2017-01-08 13:18 | NUR ---
NO CHANGE NOTED
--- NOTE | 2017-01-08 15:00 | NUR ---
NO CHANGES NOTED AT PRESENT
--- NOTE | 2017-01-08 19:00 | NUR ---
REPORT RECIEVED, INITIAL ASSESSMENT COMPLETE, PLEASE SEE FLOW SHEETS FOR DETAILS. BED LOW AND LOCKED, CALL LIGHT IN REACH. ORAL CARE AND TURNING PROVIDED. VSS, WILL CONTINUE POC.
--- NOTE | 2017-01-08 21:00 | NUR ---
ORAL CARE AND TURNING PROVIDED, BED LOW AND LOCKED, VSS, WILL CONTINUE POC.
--- NOTE | 2017-01-08 23:00 | NUR ---
REASSESSMENT COMPLETE, PLEASE SEE FLOW SHEETS FOR DETAILS. ORAL CARE AND TURNING PROVIDED. BED LOW AND LOCKED, VSS, WILL CONTINUE POC.
[2017-01-09] VITALS (70 sets, daily range): BP systolic 87–126; BP diastolic 58–95
--- NOTE | 2017-01-09 01:00 | NUR ---
ORAL CARE AND TURNING PROVIDED, BED LOW AND LOCKED, VSS, WILL CONTINUE POC.
--- NOTE | 2017-01-09 02:58 | NUR ---
REASSESSMENT COMPLETE, PLEASE SEE FLOW SHEETS FOR DETAILS. ORAL CARE AND TURNING PROVIDED, BED LOW AND LOCKED. VSS, WILL CONTINUE POC.
[2017-01-09 04:34] LABS: BASOPHILS 0.1 % (0.0-2.0); EOSINOPHILS 1.6 % (0-7); IMMATURE GRANULOCYTES 0.7 % (0-5); LYMPHOCYTES 9.7 % (15-50); MCH 35.3 pg (26.0-34.0); MCHC 35.5 g/dL (31.0-37.0); MCV 99.6 fL (80.0-100.0); MEAN PLATELET VOLUME 11.6 fL (7.4-10.4); MONOCYTES 4.1 % (2-11); NEUTROPHILS 83.8 % (40-80); RBC 2.49 10x6/uL (4.00-5.40); RDW 15.4 % (11.5-14.5); WBC 7.6 10x3/uL (4.8-10.8)
[2017-01-09 04:35] LABS: HEMATOCRIT 24.8 % (36.0-48.0); HEMOGLOBIN 8.8 g/dL (12-16); PLATELET COUNT 65 10x3/uL (130-400)
--- NOTE | 2017-01-09 05:00 | NUR ---
ORAL CARE AND TURNING PROVIDED, BED LOW AND LOCKED, VSS, WILL CONTINUE POC.
[2017-01-09 05:05] LABS: ALBUMIN 2.8 g/dL (3.4-5.0); BILIRUBIN - TOTAL 1.15 mg/dL (0.2-1.3); CALCIUM 8.1 mg/dL (8.5-10.1); MAGNESIUM - SERUM 1.6 mg/dL (1.8-2.4); PHOSPHOROUS 4.4 mg/dL (2.5-4.9)
[2017-01-09 05:29] LABS: PLATELET ESTIMATE DECREASED
[2017-01-09 05:35] LABS: CARBON DIOXIDE 23.7 mmol/L (21.0-32.0)
[2017-01-09 05:37] LABS: PROTEIN - SERUM 4.9 g/dL (6.4-8.2)
[2017-01-09 05:39] LABS: POTASSIUM - SERUM 3.7 mmol/L (3.5-5.1); VANCOMYCIN - RANDOM 19.3 ug/mL (10.0-20.0)
--- NOTE | 2017-01-09 08:35 | NUR ---
CALLED Rx R/T VANCOMYCIN, WILL GIVE WHEN RECD.
--- NOTE | 2017-01-09 09:07 | NUR ---
SECOND CALL FOR VANCOMYCIN
[2017-01-09 11:05] LABS: BASOPHILS 0.1 % (0.0-2.0); EOSINOPHILS 1.8 % (0-7); HEMOGLOBIN 8.5 g/dL (12-16); IMMATURE GRANULOCYTES 0.5 % (0-5); LYMPHOCYTES 8.6 % (15-50); MCHC 35.4 g/dL (31.0-37.0); MCV 98.8 fL (80.0-100.0); MEAN PLATELET VOLUME 11.3 fL (7.4-10.4); MONOCYTES 4.3 % (2-11); NEUTROPHILS 84.7 % (40-80); PLATELET COUNT 63 10x3/uL (130-400); RBC 2.43 10x6/uL (4.00-5.40); RDW 15.5 % (11.5-14.5); WBC 7.6 10x3/uL (4.8-10.8)
--- NOTE | 2017-01-09 19:45 | NUR ---
ASSESSMENT COMPLETE. S1S2. PT SEDATED ON VENT. RIGHT PUPIL 3MM SLUGGISH; LEFT PUPIL 3MM BRISK. RR CLEAR BILATERALLY IN UPPER LOBES; DIMINISHED BILATERALLY IN LOWER LOBES. ON LEVOPHED 13 MCG/KG/MIN. RADIAL AND PEDAL PULSES PALPATED. EPIDERAL IN PLACE. RIGHT ARM RESERVE; FISTULA; BRUIT AND THRILL PRESENT.
--- NOTE | 2017-01-09 21:30 | NUR ---
PT SEDATED ON VENT. VSS. NO DISTRESS NOTED. WILL CONTINUE TO MONITOR.
--- NOTE | 2017-01-09 23:15 | NUR ---
REASSESSMENT COMPLETE. NO CHANGES FROM PREVIOUS ASSESSMENT. SEE FLOW SHEET FOR FURTHER DETAILS.
[2017-01-10] VITALS (91 sets, daily range): BP systolic 83–132; BP diastolic 53–90
--- NOTE | 2017-01-10 01:30 | NUR ---
ORAL CARE PROVIDED. CHANGES IN POSITION MADE. VSS. NO DISTRESS NOTED. WILL CONTINUE TO MONITOR.
--- NOTE | 2017-01-10 03:15 | NUR ---
REASSESSMENT COMPLETE. NO CHANGES FROM PREVIOUS ASSESSMENT. VSS. RR 12. HR 98. O2 97%
[2017-01-10 03:26] LABS: BASOPHILS 0 % (0.0-2.0); EOSINOPHILS 2.7 % (0-7); IMMATURE GRANULOCYTES 0.7 % (0-5); LYMPHOCYTES 10.3 % (15-50); MCH 34.3 pg (26.0-34.0); MCHC 34.7 g/dL (31.0-37.0); MEAN PLATELET VOLUME 11.7 fL (7.4-10.4); MONOCYTES 4.6 % (2-11); NEUTROPHILS 81.7 % (40-80); PLATELET COUNT 52 10x3/uL (130-400); RBC 2.01 10x6/uL (4.00-5.40); RDW 15.3 % (11.5-14.5)
[2017-01-10 03:30] LABS: HEMATOCRIT 19.9 % (36.0-48.0); HEMOGLOBIN 6.9 g/dL (12-16); WBC 4.4 10x3/uL (4.8-10.8)
[2017-01-10 03:37] LABS: ALBUMIN 2.9 g/dL (3.4-5.0); ANION GAP 17.2 mmol/L (8-16); BILIRUBIN - TOTAL 1.1 mg/dL (0.2-1.3); CALCIUM 8.8 mg/dL (8.5-10.1); CARBON DIOXIDE 23.6 mmol/L (21.0-32.0); CREATININE - SERUM 6.9 mg/dL (0.6-1.3); GENTAMICIN - TROUGH 1.1 ug/mL (0.5-2.0); MAGNESIUM - SERUM 1.6 mg/dL (1.8-2.4); PHOSPHOROUS 4.5 mg/dL (2.5-4.9); POTASSIUM - SERUM 3.8 mmol/L (3.5-5.1); PROTEIN - SERUM 5.5 g/dL (6.4-8.2); VANCOMYCIN - RANDOM 25.5 ug/mL (10.0-20.0)
--- NOTE | 2017-01-10 05:24 | NUR ---
SPOKE WITH DEANDRE WHITE; CALLING TO CHECK ON PT.
--- NOTE | 2017-01-10 06:19 | NUR ---
SPOKE WITH DR. CLARK. INFORMED ABOUT PT CRITICAL LABS; HGB 6.9; HCT 19.9. ORDERS FOR 2 UNIT PRBC; 1 UNIT PLATELETS. REPEAT CBC.
--- NOTE | 2017-01-10 07:15 | NUR ---
SPOKE WITH DR. RIVAS. PRBC AND PLATLETS TO BE GIVEN DURING DIALYSIS.
--- NOTE | 2017-01-10 09:04 | NUR ---
0800 AM ASSESMENT IS COMPLETE SEE FLOW SHEET FOR FINDINGS.. PT IS ORALLY INTUBATED AND SEDATED ON VENT WITH MID ABDOMINAL ICISION COVERED WITH A CDI DRESSING.. THERE IS A CVL IN THE LEFT GROIN SEE FLOW SHEET FOR FLUIDS.. NGT LIWS MCKENNA COLORED DRAINAGE.. 0900 WIHTOUT VISITORS AT THIS TIME..
--- NOTE | 2017-01-10 09:24 | NUR ---
Nutrition follow-up: Pt now intubated, sedated labs reviewed Clinimix infusing @ 40 ml/hr; renal managing at this time Wt: 145# NGT->LIWS with distended abdomen. RDN following.
--- NOTE | 2017-01-10 12:15 | NUR ---
1020 DIalysis started at the bedside.. 1100 CONTINUES WITH DDIALYSIS 1115 FIRST UNIT PRBC GIVEN ON DIALYSIS 1145 2ND UNIT PRBC.. GIVEN ON DIALYSIS 1200 WITHOUT VISITORS AT THIS TIME, 1215 CONTINUES ON DIALYSIS
[2017-01-10 16:01] LABS: MCH 32.8 pg (26.0-34.0); MCHC 34.8 g/dL (31.0-37.0); MEAN PLATELET VOLUME 10.3 fL (7.4-10.4); RDW 15.6 % (11.5-14.5); WBC 4.4 10x3/uL (4.8-10.8)
[2017-01-10 16:30] LABS: HEMATOCRIT 25.3 % (36.0-48.0); HEMOGLOBIN 8.8 g/dL (12-16); MCV 94.4 fL (80.0-100.0); RBC 2.68 10x6/uL (4.00-5.40)
--- NOTE | 2017-01-10 17:48 | NUR ---
1400 DIALYSIS IS COMPLETE.. 2 UNITS PRBC GIVEN AND 100CC ALBUMIN ON DIALYSIS TOTL OF 1 LITER FLUID REMOVED.. PT REMAINS SEDATED ON THE VENT.. DR SAGE IN TO SEE PT AND DR CLARK CALLED PER DR SAGE AND ORDERS RECIEVED FOR CT ABDOMEN AND CBC POST TRANSFUSION .. DR MILLER CONSULT 1500 WITHOUT VISITORS.. PLATLETTS THRU IN FUSING AND LAB NOTIFIED TO DRAW CBC.. PT IS REPOSITIONED AND LAB DRAWN BY NURSE.. 1600 I AND O DONE.. DR MILLER IN TO SEE PT.. ORDERS RECIEVED 1700 NEW BAG TPN AND LIPIDS HUNG.. LAB IN AND BLOOD CULTURES SIM FROM [facility] FOR LAB..
--- NOTE | 2017-01-10 19:15 | NUR ---
ORDERS FOR ABD CT RECEIVED FROM DR. CLARK.
--- NOTE | 2017-01-10 19:30 | NUR ---
SPOKE WITH RT ABOUT ABD CT AND SPOKE WITH CT.
--- NOTE | 2017-01-10 19:30 | NUR ---
ASSESSMENT COMPLETE. S1S2. SINUS TACH SHOWING ON MONITOR. RR EQUAL CLEAR BILATERALLY IN UPPER LOBES; DIMINISHED BILATERALLY IN LOWER LOBES. SEDATED ON MECHANICAL VENT. ON LEVOPHED AND DIPRIVAN. EPIDURAL IN PLACE. LT GROIN CVL; PATENT. SCD IN PLACE. ABD DISTENDED AND FIRM; INCISION SITE. BOWEL SOUNDS ABSENT X4. WILL CONTINUE TO MONITOR.
--- NOTE | 2017-01-10 21:05 | NUR ---
PT ABD CT COMPLETE. VITAL SIGNS REMAINED STABLE; SLIGHT DECREASE IN BP REMAINS ON LEVOPHED. MONITORING CLOSELY.
--- NOTE | 2017-01-10 23:15 | NUR ---
REASSESSMENT COMPLETE. NO CHANGES FROM PREVIOUS ASSESSMENT. WILL CONTINUE TO MONITOR.
[2017-01-11] VITALS (96 sets, daily range): BP systolic 76–108; BP diastolic 46–75
--- NOTE | 2017-01-11 03:30 | NUR ---
REASSESSMENT COMPLETE. NO CHANGES FROM PREVIOUS ASSESSMENT. VSS. MONITORING BP CLOSELY. WILL CONTINUE TO MONITOR.
[2017-01-11 05:41] LABS: BASOPHILS 0 % (0.0-2.0); EOSINOPHILS 2.4 % (0-7); HEMATOCRIT 25.5 % (36.0-48.0); HEMOGLOBIN 9.3 g/dL (12-16); IMMATURE GRANULOCYTES 0.3 % (0-5); LYMPHOCYTES 5.7 % (15-50); MCH 34.6 pg (26.0-34.0); MCHC 36.5 g/dL (31.0-37.0); MCV 94.8 fL (80.0-100.0); MEAN PLATELET VOLUME 12.4 fL (7.4-10.4); MONOCYTES 9.1 % (2-11); NEUTROPHILS 82.5 % (40-80); PLATELET COUNT 56 10x3/uL (130-400); RBC 2.69 10x6/uL (4.00-5.40); RDW 16.5 % (11.5-14.5)
[2017-01-11 05:42] LABS: APTT 33.9 SECONDS (22.8-39.4); INR 1.24 (0.85-1.17); PROTIME 15.5 SECONDS (11.6-15.0)
[2017-01-11 05:52] LABS: ALBUMIN 2.9 g/dL (3.4-5.0); BILIRUBIN - TOTAL 1.6 mg/dL (0.2-1.3); CALCIUM 9.5 mg/dL (8.5-10.1); CARBON DIOXIDE 28.5 mmol/L (21.0-32.0); VANCOMYCIN - RANDOM 16.9 ug/mL (10.0-20.0)
[2017-01-11 06:00] LABS: ANION GAP 13.2 mmol/L (8-16); CREATININE - SERUM 4.2 mg/dL (0.6-1.3); PHOSPHOROUS 2.1 mg/dL (2.5-4.9); POTASSIUM - SERUM 2.7 mmol/L (3.5-5.1)
[2017-01-11 06:02] LABS: WBC 5.8 10x3/uL (4.8-10.8)
--- NOTE | 2017-01-11 06:06 | NUR ---
NO VISITORS AT THIS TIME
--- NOTE | 2017-01-11 06:10 | NUR ---
PAGED DR. MYERS TIMBER PACKER AMEYA FOR POTASSIUM OF 2.7
--- NOTE | 2017-01-11 06:25 | NUR ---
SPOKE WITH DR. HOU. ORDERS RECEIVED.
--- NOTE | 2017-01-11 08:56 | NUR ---
PATIENT REMAINS ON THE VENT WITH SEDATION. SHE IS NOT ABLE TO ANSWER QUESTIONS AND I HAVE NOT SEEN ANY FAMILY HERE TO INTERVIEW. CM TO FOLLOW.
--- NOTE | 2017-01-11 11:43 | NUR ---
0730 AM ASSESMENT IS COMPLETE SEE FLOW SHEET FOR FINDINGSA... PT REMAINS SEDATED AND ON VENT WITH DIIPRIVAN SEDATION.. LEVOPHED INFUSINBG FOR BP CONTROL.. LEFT GROIN CVL.. SEE FLOW SHEET FOR FLUID TYPES AND RATES.. 0815 DR CLARK IN TO SEE PT.. UPDATE GIVEN... 0900 WITHOUT VISITORS AT THIS TIME..
--- NOTE | 2017-01-11 11:48 | NUR ---
1000 WITHOUT CHANGES.. ALL IV LINES CHANGES AND LABELED WITH NEW FLUIDS.. CONTINUES ON DIPRIVAN RATE DECREASED .. LEVOPHED CONTINUES ON FOR BP .. MAP >[address] SAGE IN TO SEE PT.. UIPDATE GIVEN
--- NOTE | 2017-01-11 17:13 | NUR ---
1200 WIHTOUT VISITORS AT THIS TIME.. 1300 NO CHANGES IN PT 1500 WIHTOUT VISITORS.. 1600 I AND O DONE 1700 PT REMAINS WITHOUT CHNAGES IN STATUS.. COTNINUES SEDATED ON VENT WITH LEVOPHED INFUSING TO SUPPORT BP
--- NOTE | 2017-01-11 19:00 | NUR ---
REPORT RECIEVED, SHIFT ASSESSMENT COMPLETE, PT IS SEDATED ON VENT, ON 30% FIO2 WITH 95% O2 SAT. CRACKLES HEARD IN B/L UPPER LOBES, DIMINISHED IN B/L LOWER LOBES, S1S2, CM-ST, PATENT NGT WITH GREEN DRAINAGE NOTED, ABDOMEN IS DISTENDED AND FIRM WITH ABSENT BS, DRSG TO MIDLINE ABDOMINAL INCISION IS CDI, PATENT LEFT GROIN CVL...SEE FLOW SHEET.. PT ANURIC, PATENT RIGHT UPPER ARM FISTULA, BRUITT AND THRILL NOTED, EDEMA NOTED IN ALL EXTREMTIES, ALL PPP, WILL CON'T TO MONITOR
--- NOTE | 2017-01-11 19:04 | NUR ---
1800 [facility] VISITORS AT THIS TIME..
--- NOTE | 2017-01-11 20:43 | NUR ---
UDPATE GIVEN TO FAMILY OVER PHONE, PASSWORD OBTAINED
--- NOTE | 2017-01-11 21:06 | NUR ---
NO VISITORS AT THIS TIME, REPOSITIONED FOR COMFORT, WILL CON'T TO MONITOR
--- NOTE | 2017-01-11 23:00 | NUR ---
REASSESSMENT COMPLETED. SEE FLOWHSEET FOR FULL DETAILS.
[2017-01-12] VITALS (98 sets, daily range): BP systolic 54–122; BP diastolic 48–78
--- NOTE | 2017-01-12 01:00 | NUR ---
NO CHANGES IN PT STATUS AT THIS TIME. VSS. WILL MONITOR FOR CHANGES
--- NOTE | 2017-01-12 03:00 | NUR ---
REASSESSMENT COMPLETED. SEE FLOWSHEET FOR FULL DETAILS. VSS. WILL MONITOR
[2017-01-12 03:44] LABS: BASOPHILS 0.1 % (0.0-2.0); EOSINOPHILS 1.5 % (0-7); HEMOGLOBIN 9.9 g/dL (12-16); IMMATURE GRANULOCYTES 6.7 % (0-5); LYMPHOCYTES 4.2 % (15-50); MCH 32.5 pg (26.0-34.0); MCHC 34.1 g/dL (31.0-37.0); MCV 95.1 fL (80.0-100.0); MEAN PLATELET VOLUME 11.3 fL (7.4-10.4); MONOCYTES 8.7 % (2-11); NEUTROPHILS 78.8 % (40-80); RBC 3.05 10x6/uL (4.00-5.40); RDW 16.5 % (11.5-14.5)
[2017-01-12 04:13] LABS: ALBUMIN 2.9 g/dL (3.4-5.0); BILIRUBIN - TOTAL 2.28 mg/dL (0.2-1.3); CALCIUM 9.6 mg/dL (8.5-10.1); MAGNESIUM - SERUM 1.8 mg/dL (1.8-2.4); PHOSPHOROUS 2.5 mg/dL (2.5-4.9); PLATELET COUNT 68 10x3/uL (130-400); PROTEIN - SERUM 5.6 g/dL (6.4-8.2); VANCOMYCIN - RANDOM 14.3 ug/mL (10.0-20.0); WBC 10.5 10x3/uL (4.8-10.8)
[2017-01-12 04:22] LABS: ANION GAP 23.1 mmol/L (8-16); CARBON DIOXIDE 20.7 mmol/L (21.0-32.0); CREATININE - SERUM 5.6 mg/dL (0.6-1.3); POTASSIUM - SERUM 3.8 mmol/L (3.5-5.1)
--- NOTE | 2017-01-12 04:54 | NUR ---
FSBS 59. AMP OF D50 GIVEN. NO OTHER CHANGES AT THIS TIME.
--- NOTE | 2017-01-12 07:00 | NUR ---
REC'D REPORT AND RESUMED CARE, ETT TO VENTILATION AND SECURED, FIO2 30%, NGT TO LIWS, PINK TINGED DRAINAGE TO TUBING, ORAL CARE AND SUCTION COMPLETED, EPIDURAL IN PLACE, OFF AT THIS TIME, MIDLINE ABDOMINAL DRESSING CDI, RIGHT UPPER ARM FISTULS WITH BRUIE AND THRILL, LEFT GROIN CVL WITH LEVAPHED, TPN, NS, AND PROPOFAL INFUSING, B/L WRIST RESTRAINTS IN USE, SCD'S B/L, ASSESSMENT COMPLETE PER FLOWSHEET, VSS, AROUSES TO TACTILE STIMULI, DOES NOT FOLLOW COMMANDS.
--- NOTE | 2017-01-12 08:50 | NUR ---
DR MORE WITH ANESTHESIA HERE FOR EPIDURAL REMOVEL, REMOVED WITHOUT DIFFICULTY
--- NOTE | 2017-01-12 09:00 | NUR ---
AM MEDS GIVEN WITHOUT DIFFICULTY, NO VISITORS AT THIS TIME
--- NOTE | 2017-01-12 09:35 | NUR ---
FSBS RE CHECK 78, NO INTERVENTION AT THIS TIME, MAG 1 GRAM, SODIUM PHOSPHATE 15 MMOL, AND VANCO 1 GRAM INITIATED
--- NOTE | 2017-01-12 11:00 | NUR ---
NO ACUTE CHANGE FROM PREVIOUS ASSESSMENT, VSS, CONTINUES ON VENT AND PRESSORS, REPOSITIONED TO RIGHT SIDE WITH PILLOW PROPPED TO BACK AND HEELS FLOATED
--- NOTE | 2017-01-12 11:25 | NUR ---
HD BEGAN, VSS LEVAPHED AT 12 MCG, SBP 104
--- NOTE | 2017-01-12 12:25 | NUR ---
Nutrition follow-up: Pt remains intubated, sedated on propofol PPN infusing @ 40 ml/hr; renal managing at this time Labs reviewed Wt: 155# RDN following.
--- NOTE | 2017-01-12 13:00 | NUR ---
SBP 79 WITH MAP OF 62, TIRATED LEVAPHED TO 18 MCG, REPEAT BP 88/51 WITH MAP OF 67
--- NOTE | 2017-01-12 13:13 | NUR ---
DIALYSIS COORDINATOR: PATHWAYS: [facility] //SAT 1ST SHIFT. ADRIEN MATHEWS.
--- NOTE | 2017-01-12 14:00 | NUR ---
HD TREATMENT COMPLETED, LEVAPHED AT 20 MCG, TITRATED TO 18 MCG, SBP 111 WITH MAP OF 76, OTHER VSS, RIGHT UPPER ARM DRESSING CDI
--- NOTE | 2017-01-12 15:00 | NUR ---
NO ACUTE CHANGE FROM PREVIOUS ASSESSMENT, CONTINUES ON LEVAPHED AT 18 MCG, REPOSITIONED TO RIGHT SIDE WITH PILLOW PROPPED TO BACK
--- NOTE | 2017-01-12 16:15 | NUR ---
I AND O'S COMPLETED SEE FLOWSHEET
--- NOTE | 2017-01-12 17:49 | NUR ---
FSBS 87, NO INTERVENTION AT THIS TIME, RESPIRATORY CULTURE OBTAINED BY RT AND SENT TO LAB FOR EVAL, PAGED DR SAGE RE: NEED FOR ECHO TODAY, MAY DO IN AM
--- NOTE | 2017-01-12 19:00 | NUR ---
REPORT RECIEVED, SHIFT ASSESSMENT COMPLETE, PT IS SEDATED ON VENT, ON 30% FIO2 WITH 98% O2 SAT. CRACKLES HEARD IN B/L UPPER LOBES, DIMINISHED IN B/L LOWER LOBES, S1S2, CM-ST, PATENT NGT WITH PINK TINGED DRAINAGE, DRSG TO MIDLINE ABDOMINAL INCISION IS CDI, ABDOMEN IS DISTENDED WITH HYPO BS, PATENT LEFT GROIN CVL...SEE FLOW SHEET...PT ANURIC, EDEMA NOTES IN ALL EXTREMETIES, ALL PPP, WILL CON'T TO MONITOR
--- NOTE | 2017-01-12 21:00 | NUR ---
NO VISITORS AT THIS TIME, REPOSITIONED FOR COMFORT, WILL CON'T TO MONITOR
--- NOTE | 2017-01-12 23:19 | NUR ---
REASSESSMENT COMPLETE, NO CHANGES NOTED, PT REPOSITIONED FOR COMFORT, ORAL CARE PROVIDED,
[2017-01-13] VITALS (92 sets, daily range): BP systolic 82–120; BP diastolic 21–74
--- NOTE | 2017-01-13 01:01 | NUR ---
REPOSITIONED FOR COMFORT, ORAL CARE PROVIDED,
--- NOTE | 2017-01-13 03:00 | NUR ---
REASSESSMENT COMPLETE, NO CHANGES NOTED, REPOSITIONED FOR COMFORT, ORAL CARE PROVIDED,
[2017-01-13 04:21] LABS: BASOPHILS 0.2 % (0.0-2.0); EOSINOPHILS 1.4 % (0-7); HEMATOCRIT 28.5 % (36.0-48.0); HEMOGLOBIN 10.1 g/dL (12-16); LYMPHOCYTES 4.9 % (15-50); MCH 33.7 pg (26.0-34.0); MCHC 35.4 g/dL (31.0-37.0); MEAN PLATELET VOLUME 11.1 fL (7.4-10.4); MONOCYTES 6.2 % (2-11); NEUTROPHILS 86.3 % (40-80); RDW 16.3 % (11.5-14.5); WBC 13.1 10x3/uL (4.8-10.8)
[2017-01-13 04:35] LABS: PLATELET COUNT 95 10x3/uL (130-400)
[2017-01-13 04:54] LABS: ALBUMIN 2.9 g/dL (3.4-5.0); ANION GAP 21.1 mmol/L (8-16); BILIRUBIN - TOTAL 1.91 mg/dL (0.2-1.3); CALCIUM 9.6 mg/dL (8.5-10.1); CARBON DIOXIDE 22.2 mmol/L (21.0-32.0); CREATININE - SERUM 4.4 mg/dL (0.6-1.3); MAGNESIUM - SERUM 2.1 mg/dL (1.8-2.4); PROTEIN - SERUM 5.6 g/dL (6.4-8.2); VANCOMYCIN - RANDOM 21.3 ug/mL (10.0-20.0)
[2017-01-13 04:55] LABS: PHOSPHOROUS 1.3 mg/dL (2.5-4.9)
[2017-01-13 04:56] LABS: POTASSIUM - SERUM 2.3 mmol/L (3.5-5.1)
--- NOTE | 2017-01-13 09:16 | NUR ---
Nutrition follow-up: Pt remains intubated, sedated PPN infusing @ 40 ml/hr; propofol infusing @ 14.2 ml/hr NGT->LIWS; pt continues with SBO PPN (D10W,4.25%AA) infusing @ 40 ml/hr + propofol providin kcal 41 gm protein Pt is not meeting estimated nutritional needs with current PPN regimen. Recommend changing to TPN (D25W,4.25%AA) @ 50 ml/hr. RDN following.
--- NOTE | 2017-01-13 10:45 | NUR ---
PATIENT IS ON THE VENT AND SEDATED. SHE IS UNABLE ANSWER QUESTIONS. I HAVE NOT SEEN ANY FAMILY HERE TO INTERVIEW. CM TO FOLLOW.
--- NOTE | 2017-01-13 17:00 | NUR ---
TANG GRIFFITHS HERE INFORM OF K 3.2 INSTRUCT NEW TPN INFUSING WITH 20MEQ K. INSTRUCT TO CONT TPN. NO NEW ORDERS OBTAINED.
--- NOTE | 2017-01-13 19:00 | NUR ---
REPORT RECIEVED, SHIFT ASSESSMENT COMPLETE, PT IS SEDATED ON VENT, ON 30% FIO2 WITH 98% O2 SAT. CRACKLES HEARD IN B/L UPPER LOBES, DIMINISHED IN B/L LOWER LBOES, S1S2, CM-ST, PATENT NGT WITH PINK TINGE DRAINGE, PATENT RIGHT UPPER ARM FISTUAL, BRUIT AND THRILL NOTED, ABDOMEN IS DISTENDED WITH ABSENT BS, DRSG TO ABDOMINAL INCISION IS CDI, PT ANURIC, PATENT LEFT GROIN CVL...SEE FLOW...PT ANURIC. EDEMA NOTED IN ALL EXTREMETIES, ALL PPP, WILL CON'T TO MONITOR
--- NOTE | 2017-01-13 21:00 | NUR ---
NO VISITORS AT THIS TIME, REPOSITIONED FOR COMFORT, WILL CON'T TO MONITOR
--- NOTE | 2017-01-13 21:44 | OP ---
PATIENT NAME: LYNN DILLARD MEDICAL RECORD: [id number] :70 LOCATION:[facility] [id number] ADMISSION DATE:01/05/17 SURGEON: SERGE CLARK MD DATE OF OPERATION: 01/07/2017 REFERRING PHYSICIAN: Jose Farr MD. PREOPERATIVE DIAGNOSIS: Persistent recurrent small-bowel obstruction due to adhesions. POSTOPERATIVE DIAGNOSES: Persistent recurrent small-bowel obstruction due to adhesions with severe chronic post-inflammatory adhesions involving the majority of the colon and distal half of the small intestine with a matted gnarled length of terminal ileum, resulting in the most significant degree of obstruction. OPERATIONS PERFORMED: Percutaneous insertion of a femoral central venous line on the left using ultrasound guidance with appropriate documentation and then exploratory laparotomy with extensive enterolysis and resection of terminal ileum and right colon. SURGEON: Serge Clark MD. ORTHOTIST PROSTHETIST: Dr. Serge Viramontes, who was present throughout the procedure. ANESTHESIA: General endotracheal per Dr. Phillips and associated CRNAs. PREOPERATIVE NOTE: Lynn iDllard is a 46-year-old white female patient, who has a long and complicated medical history. She has had end-stage renal disease for years and has had numerous abdominal operations for placement of and to treat complications of peritoneal dialysis catheters. In addition to that, she has had a cholecystectomy, an appendectomy, and her left ovary removed for benign disease. 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 There is a somewhat vague history of excessive alcohol abuse in past years. She was admitted to the hospital on January 05 with a sudden and severe recurrent onset of abdominal pain with bilious vomiting and obstipation. She has been treated with nasogastric tube decompression. CT scan reveals findings consistent with an acute and chronic small bowel obstruction with a gnarled mass of terminal ileum as I described being present in the left lower quadrant of the abdomen. She has accepted my recommendation that she undergo an open laparotomy for enterolysis and indicated procedures and accepts the risks and benefits as described and wishes for me to proceed. PROCEDURE IN DETAIL: With the patient under general anesthesia, she was prepped and draped in a sterile manner. The left groin was included in the prep. I placed a triple lumen ARROWg+judy catheter percutaneously via the left femoral vein using continuous ultrasound guidance with appropriate documentation. All 3 lumens returned blood and were flushed with saline solution, clamped and capped. The catheter was sutured in place with 2-0 silk and a standard dressing applied. Next, a midline abdominal incision was made which was extended superiorly and inferiorly several times during the operation. The patient was found to have a peculiar, very fibrous, apparently chronically inflamed parietal peritoneum as well as serosal, peritoneal surfaces over the small bowel and colon. The OPERATIVE REPORT [id number] LYNN DILLARD adhesiolysis was particularly difficult and multiple enterotomies were occasioned at first in the more proximal small bowel. These were repaired in a single layer with inverting Lembert-type sutures of 3-0 Vicryl and there was actually minimal spillage of bowel content. The adhesiolysis extended from the ligament of Treitz to the terminal ileum, the matted mass of small bowel in left lower quadrant was freed from the descending and sigmoid colon and the dissection then included also the ileocecal valve, cecum and right colon over to the right transverse colon. The ileum was divided with a stapling device proximal to the matted mass bowel and the transverse colon also divided with a stapler. The mesentery was incised and then divided between clamps and ligated with 2-0 Vicryl ties. A [id number] functional end-to-end ileocolostomy anastomosis was then performed again with a stapling technique and the mesenteric defect was closed with interrupted Vicryl sutures. Two other mesenteric defects in the proximal small intestinal mesentery were closed similarly with Vicryl. The liver was rarely actually seen during the dissection, although it had to be from dense adhesions to the hepatic flexure of the colon nor was the spleen visualized during the operation. The nasogastric tube positioning in the stomach was confirmed visually. The abdomen was irrigated with saline. The viscera placed in a normal anatomic positions and the fascia closed with a running looped #1 PDS. The skin and subcutaneous tissues were irrigated with gentamicin solution and the skin was closed with jennifer and a sterile dressing applied. The patient was left intubated and taken to the ICU and placed on a ventilator. An epidural was placed preoperatively and that will be used for postoperative pain control. Blood loss during the operation was estimated at about 200 cc. None was replaced intraoperatively. All sponges, instruments and needles were accounted for. No drain was used and the surgical specimens consisted of the terminal ileum and right colon. An additional separate specimen was sent, which consisted of the thickened, scarred, partially calcified anterior abdominal wall peritoneum. PLAN: The patient will be supported in the ICU. She will continue nasogastric tube suction. She can resume dialysis as needed and tolerated, no doubt she will require pressors such as Spencer-Synephrine or Levophed drip to help maintain her blood pressure while the epidural is utilized for pain control. Nephrology will be seeing the patient and she is to be started tomorrow on TPN. Barring any other indication, I will plan to discontinue her antibiotic therapy at 48 hours. Continue with only that long because of the minor spillage, which occurred intraoperatively. TRANSINT:[id number] Voice Confirmation ID: [id number] DOCUMENT ID: [id number] SERGE CLARK MD at 2144 CC: JOSE FARR MD [id number] DICTATION DATE: 01/12/17 1118 MANAGED CARE DIRECTOR: 01/12/17 1401 ADM IN [facility] [address] [id number]
--- NOTE | 2017-01-13 23:08 | NUR ---
REASSESSMENT COMPLETE, NO CHANGES NOTED, PT REPOSITIONED FOR COMFORT, ORAL CARE PROVIDED, WILL CON'T TO MONITOR
[2017-01-14] VITALS (7 sets, daily range): BP systolic 79–99; BP diastolic 21–92
--- NOTE | 2017-01-14 01:20 | NUR ---
PT HAVING RYTHM CHANGES AT THIS TIME, EKG OBTAINED,
--- NOTE | 2017-01-14 01:39 | NUR ---
PT IN VTACH AT THIS TIME, CODE BLUE CALLED....SEE CODE BLUE SHEET...
--- NOTE | 2017-01-14 01:45 | NUR ---
DR. CLARK AND [place] NOTIFIED OF PT CODING, NO NEW ORDERS OBTAINED
[2017-01-14 02:11] LABS: BASOPHILS 0.8 % (0.0-2.0); EOSINOPHILS 0.9 % (0-7); HEMATOCRIT 27.5 % (36.0-48.0); HEMOGLOBIN 9.2 g/dL (12-16); LYMPHOCYTES 36.7 % (15-50); MCH 32.5 pg (26.0-34.0); MCHC 33.5 g/dL (31.0-37.0); MEAN PLATELET VOLUME 10.8 fL (7.4-10.4); MONOCYTES 6.9 % (2-11); NEUTROPHILS 51.7 % (40-80); RBC 2.83 10x6/uL (4.00-5.40); RDW 16.5 % (11.5-14.5)
[2017-01-14 02:14] LABS: MCV 97.2 fL (80.0-100.0); PLATELET COUNT 137 10x3/uL (130-400); WBC 8.6 10x3/uL (4.8-10.8)
--- NOTE | 2017-01-14 02:15 | NUR ---
MOTHER CAMMY NOTIFIED OF PT , HOME OBTAINED AT THIS TIME, YVONNE WITT WITNESSED
--- NOTE | 2017-01-14 02:21 | NUR ---
ANYA NOTIFIED OF PT
[2017-01-14 02:25] LABS: ALBUMIN 2.9 g/dL (3.4-5.0); ANION GAP 30.5 mmol/L (8-16); BILIRUBIN - TOTAL 1.63 mg/dL (0.2-1.3); CALCIUM 9.3 mg/dL (8.5-10.1); CARBON DIOXIDE 16.9 mmol/L (21.0-32.0); CREATININE - SERUM 5.8 mg/dL (0.6-1.3); MAGNESIUM - SERUM 2.6 mg/dL (1.8-2.4); PHOSPHOROUS 7.4 mg/dL (2.5-4.9); POTASSIUM - SERUM 5.4 mmol/L (3.5-5.1); PROTEIN - SERUM 6.6 g/dL (6.4-8.2); VANCOMYCIN - RANDOM 20.3 ug/mL (10.0-20.0)
--- NOTE | 2017-01-14 02:26 | NUR ---
HOME NOTIFIED OF PT
== END 2017-01-14 02:12 | DRG 853 ==
LOC: D.M2 23:39 → D.ICU 23:39 → D.M2 01-06 07:59 → D.ICU 01-07 12:26
PROVIDERS: Internal Medicine; Internal Medicine Nephrology; Internal Medicine Pulmonary Disease; Surgery; ADMIT Internal Medicine Nephrology
PROC: 5A1955Z Respiratory Ventilation, Greater than 96 Consecutive Hours (ICD-10-PCS; principal; 2017-01-07 10:45)
PROC: 0DTH0ZZ Resection of Cecum, Open Approach (ICD-10-PCS; 2017-01-07 10:45)
PROC: 06HN33Z Insertion of Infusion Device into Left Femoral Vein, Percutaneous Approach (ICD-10-PCS; 2017-01-07 10:45)
PROC: 0DNB0ZZ Release Ileum, Open Approach (ICD-10-PCS; 2017-01-07 10:45)
DX: A41.51 Sepsis due to Escherichia coli [E. coli] (principal); N18.6 End stage renal disease; K65.9 Peritonitis, unspecified; J95.821 Acute postprocedural respiratory failure; K72.00 Acute and subacute hepatic failure without coma; I13.11 Hypertensive heart and chronic kidney disease without heart failure, with stage 5 chronic kidney disease, or end stage renal disease; J98.11 Atelectasis; D62 Acute posthemorrhagic anemia; K91.3 Postprocedural intestinal obstruction; Z99.2 Dependence on renal dialysis; K74.60 Unspecified cirrhosis of liver; D69.6 Thrombocytopenia, unspecified; E03.9 Hypothyroidism, unspecified; D73.1 Hypersplenism; Y83.8 Other surgical procedures as the cause of abnormal reaction of the patient, or of later complication, without mention of misadventure at the time of the procedure; D63.1 Anemia in chronic kidney disease; J45.909 Unspecified asthma, uncomplicated; E87.6 Hypokalemia; F41.8 Other specified anxiety disorders; I25.10 Atherosclerotic heart disease of native coronary artery without angina pectoris; J84.10 Pulmonary fibrosis, unspecified